=== PATIENT | male | born 1955 | race American Indian/Alaskan Native ===

== ENCOUNTER 2025-03-18 03:19 | Emergency (ER) | payer MEDICARE | END 2025-03-18 05:57 | disposition home or self-care (01) | LOC: MW.ED 03:19 | DX: G89.29 Other chronic pain (principal); M25.561 Pain in right knee; M25.562 Pain in left knee; I11.0 Hypertensive heart disease with heart failure; I50.9 Heart failure, unspecified | CPT/HCPCS: 99283; A9270-GY ==